=== PATIENT | female | born 2000 | race Caucasian/White ===

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

== ENCOUNTER 2018-05-20 13:36 | Emergency (ER) | END 2018-05-20 15:55 | disposition home or self-care (01) ==

== ENCOUNTER 2019-01-21 13:46 | Emergency (ER) | payer OTHER ==
[~2019-01-21] VITALS: Wt 61.0 kg
[~2019-01-21 13:46] MED LIST changes: +HYDR-3980 PO; +IBUP800T48 PO; +ONDA4TAB14 PO; -TRAM50TA2 PO
--- NOTE | 2019-01-21 14:17 | ERD ---
ER Documentation Chief Complaint Chief Complaint R SIDED BREAST PAIN X 2 WEEKS HPI Patient is a 18 years old female with PMHx of right ovarian cyst presenting to the clinic for chest pain and SOB x 2 weeks. Patient reports pain started on left side and has radiated to right side (right breast). Patient reports Diffi culty breathing and pain is worse with breathing. Patient denies taking any OTC medication. Patient admits to being anxious and stressed recently. Patient denies all other ROS. ROS All systems reviewed and are negative except as per history of present illness. Medications Home Meds Active Scripts Ibuprofen* (Motrin*) 800 Mg Tab, 800 MG PO Q6H PRN for PAIN AND OR ELEVATED TEMP, #30 TAB Prov:SOREN BAEZ MD 05/20/18 Ondansetron (Ondansetron Odt) 4 Mg Tab.rapdis, 4 MG PO Q6H PRN for NAUSEA AND/OR VOMITING, #10 TAB Prov:SOREN BAEZ MD 05/20/18 Hydrocodone/Acetaminophen ([place] 10-325 Tablet) 1 Each Tablet, 1 TAB PO Q6H PRN for PAIN, #7 TAB Prov:SOREN BAEZ MD 05/20/18 Allergies Allergies: Coded Allergies: No Known Allergy (Unverified , 02/06/17) PMhx/Soc Right ovarian cyst. History of Surgery: No Anesthesia Reaction: No Hx Neurological Disorder: No Hx Respiratory Disorders: No Hx Cardiac Disorders: No Hx Psychiatric Problems: No Hx Miscellaneous Medical Probl: Yes (ovarian cyst) Hx Alcohol Use: No Hx Substance Use: No Hx Tobacco Use: No Physical Exam Vitals Vital Signs Date Temp Pulse Resp B/P (MAP) Pulse Ox O2 O2 Flow FiO2 Time Delivery Rate 01/21/19 99.0 69 18 130/57 99 13:56 (81) Physical Exam Const: No acute distress Head: Atraumatic Eyes: Normal Conjunctiva Resp: Clear to auscultation bilaterally Cardio: Regular rate and rhythm, no murmurs Ext: No cyanosis, or edema Neur: Awake and alert Psych: Normal Mood and Affect Right Breast Exam: Smooth without any lumps noted on exam. No tenderness to palpation. Axillary exam unremarkable. Patient denied Left breast exam stating that pain is only on right Breast. Procedures/MDM Patient was seen and evaluated for Chest pain and SOB. Patient's symptoms most likely resemble anxiety. Patient's EKG showed NSR with unremarkable CXR. Patient was informed to f/u with PCP for psychiatry referral. Patient is stable and ready for discharge. Departure Diagnosis: Primary Impression: Anxiety Condition: Stable Patient Instructions: Anxiety Reaction Referrals: [facility] Additional Instructions: Patient advised to return to the ED immediately for new or worsening symptoms. Patient advised to follow up with primary care provider in the next 24-48 hours. Patient verbalized understanding and agrees with treatment plan and course of action. If patient has no primary care they may follow up with [facility] [address] [place] [id number] or [facility] [address] [place] [address] or [facility] [address] [place] [address] MICHELLE CORONA PA-C Jan 21, 2019 14:17
== END 2019-01-21 15:25 | disposition home or self-care (01) ==
LOC: FTE 13:46
DX: F41.9 Anxiety disorder, unspecified (principal)
CPT/HCPCS: 71046; 93005; Z7502